=== PATIENT | male | born 1955 | race Caucasian/White ===

== ENCOUNTER 2020-11-08 19:00 | Outpatient (CLI) | payer MEDICARE, OTHER | END 2020-11-08 19:01 | disposition home or self-care (01) | LOC: SLEEPLAB 19:00 | PROVIDERS: ATTEND Internal Medicine | DX: G47.33 Obstructive sleep apnea (adult) (pediatric) (principal); R06.83 Snoring; G47.10 Hypersomnia, unspecified; E66.9 Obesity, unspecified; Z68.32 Body mass index [BMI] 32.0-32.9, adult | CPT/HCPCS: 95811 ==